=== PATIENT | male | born 1970 | race Caucasian/White ===

== ENCOUNTER 2021-03-30 13:18 | Inpatient (IN) | payer OTHER ==
[2021-03-30] MEDS ORDERED: MAGNESIUM HYDROX 2400MG/30ML ORAL SUSPENSION 30 ML CUP PO PRN (15:21)
[2021-03-30] MEDS ORDERED: MAG HYDROX/AL HYDROX/SIMETH 30 ML UNIT-DOSE CUP PO PRN (15:21)
[2021-03-30] MEDS ORDERED: MENTHOL/PHENOL 1 EACH UD MM PRN (15:21)
[2021-03-30] MEDS ORDERED: BISMUTH SUBSALICYLATE 262 MG/15 ML BTL PO PRN (15:21)
[2021-03-30] MEDS ORDERED: LORazepam 1 MG TABLET PO PRN (15:21)
[2021-03-30] MEDS ORDERED: MAGNESIUM CITRATE 300 ML BOTTLE PO PRN (15:21)
[2021-03-30] MEDS ORDERED: ONDANSETRON *ODT* 4 MG TABLET SL PRN (15:21)
[2021-03-30] MEDS ORDERED: LORazepam 2 MG TABLET PO ONE (15:28)
[2021-03-30 15:39] VITALS: BMI 30.8
[2021-03-30] MEDS: hydrOXYzine PAMOATE 50 MG CAPSULE (FP) PO PRN (16:38)
[2021-03-30] MEDS ORDERED: LORazepam 2 MG TABLET PO SCH (17:00)
[2021-03-30] MEDS ORDERED: buPROPion HCL 100 MG TABLET PO SCH (18:00)
[2021-03-30] MEDS: traZODone HCL 50 MG TABLET (FP) PO SCH (21:03)
[2021-03-30] MEDS: THIAMINE HCL 100 MG TABLET (FP) PO SCH (21:03)
[2021-03-30] MEDS: OLANZapine 7.5 MG TABLET PO SCH (21:03)
[2021-03-30] MEDS: GABAPENTIN 300 MG CAPSULE PO SCH (21:04)
[2021-03-30] MEDS ORDERED: PATIENT'S OWN MEDICATION (NON-FORMULARY) (Melatonin [Melatonin] 3 MG Capsule) PO SCH (22:00)
[2021-03-30] MEDS ORDERED: MELATONIN 5 MG TABLETS PO SCH (22:00)
[2021-03-30] MEDS ORDERED: PATIENT'S OWN MEDICATION (NON-FORMULARY) (Gabapentin [Neurontin] 600 MG Tablet) PO SCH (22:00)
[2021-03-31] MEDS ORDERED: buPROPion HCL 100 MG TABLET PO SCH (09:06)
[2021-03-31] MEDS: THIAMINE HCL 100 MG TABLET (FP) PO SCH ×2 (10:24→21:43)
[2021-03-31] MEDS: GABAPENTIN 300 MG CAPSULE PO SCH ×2 (10:24→21:43)
[2021-03-31] MEDS: PRENATAL VITAMINS W/ FOLIC ACID TABLET (FP) PO SCH (10:24)
[2021-03-31] MEDS: busPIRone HCL 10 MG TABLET (FP) PO SCH (10:24)
[2021-03-31] MEDS: FOLIC ACID 1 MG TABLET (FP) PO SCH (10:24)
[2021-03-31] MEDS: OLANZapine 7.5 MG TABLET PO SCH ×2 (10:25→21:44)
[2021-03-31] MEDS: hydrOXYzine PAMOATE 50 MG CAPSULE (FP) PO PRN ×2 (10:43→15:47)
[2021-03-31] MEDS: ACETAMINOPHEN 325 MG TABLET (FP) PO PRN ×2 (10:49→16:53)
[2021-03-31] MEDS: buPROPion HCL 75 MG TABLET PO SCH ×2 (10:52→17:14)
[2021-03-31 10:54] LABS: HEMATOCRIT 41.3 % (35.4-49); HEMOGLOBIN 13.7 GM/dL (11.7-16.9); MCH 28.9 pg (25.7-33.7); MCHC 33.1 g/dl (32.0-35.9); MEAN CELL VOLUME 87.3 fl (80-96); MEAN PLT VOLUME 8.7 fl (7.5-11.1); PLATELET COUNT 284 10^3/uL (134-434); RBC 4.73 M/mm3 (4.00-5.60); RDW 14.3 % (11.9-15.9)
[2021-03-31] MEDS: IBUPROFEN 400 MG TABLET (FP) PO PRN ×2 (11:45→18:46)
[2021-03-31 12:56] LABS: CALCIUM 8.8 mg/dL (8.5-10.1)
[2021-03-31 12:57] LABS: BLOOD UREA NITROGEN 8.9 mg/dL (7-18)
[2021-03-31 13:00] LABS: CREATININE 1.3 mg/dL (0.55-1.3)
[2021-03-31 13:01] LABS: BILIRUBIN,TOTAL 0.4 mg/dL (0.2-1); TOT PROT 7.9 g/dl (6.4-8.2)
[2021-03-31] MEDS: NICOTINE POLACRILEX 2 MG GUM BUC PRN ×2 (15:48→18:08)
[2021-03-31] MEDS: METHOCARBAMOL 500 MG TABLET PO PRN (18:46)
[2021-03-31] MEDS: traZODone HCL 50 MG TABLET (FP) PO SCH (21:44)
[2021-03-31] MEDS: MELATONIN 1 MG TABLET PO SCH (21:46)
[2021-04-01] MEDS ORDERED: LORazepam 1 MG TABLET PO SCH (05:00)
[2021-04-01] MEDS: buPROPion HCL 75 MG TABLET PO SCH ×2 (09:44→17:02)
[2021-04-01] MEDS: THIAMINE HCL 100 MG TABLET (FP) PO SCH ×2 (09:44→21:15)
[2021-04-01] MEDS: FOLIC ACID 1 MG TABLET (FP) PO SCH (09:44)
[2021-04-01] MEDS: busPIRone HCL 10 MG TABLET (FP) PO SCH (09:44)
[2021-04-01] MEDS: OLANZapine 7.5 MG TABLET PO SCH ×2 (09:44→21:15)
[2021-04-01] MEDS: GABAPENTIN 300 MG CAPSULE PO SCH ×2 (09:44→21:16)
[2021-04-01] MEDS: PRENATAL VITAMINS W/ FOLIC ACID TABLET (FP) PO SCH (09:44)
[2021-04-01] MEDS ORDERED: NICOTINE 10 MG CARTRIDGE (INHALER) IH SCH (10:00)
[2021-04-01] MEDS: hydrOXYzine PAMOATE 50 MG CAPSULE (FP) PO PRN ×2 (10:39→18:47)
[2021-04-01] MEDS: IBUPROFEN 400 MG TABLET (FP) PO PRN ×2 (10:56→17:48)
[2021-04-01] MEDS: METHOCARBAMOL 500 MG TABLET PO PRN ×2 (13:30→21:16)
[2021-04-01] MEDS: traZODone HCL 50 MG TABLET (FP) PO SCH (21:15)
[2021-04-01] MEDS: MELATONIN 1 MG TABLET PO SCH (21:16)
[2021-04-02] MEDS ORDERED: LORazepam 0.5 MG TABLET PO PRN
[2021-04-02] MEDS ORDERED: LORazepam 0.5 MG TABLET PO SCH (05:00)
[2021-04-02] MEDS ORDERED: PT OWN MED DRAWER 7, Y5N ONE ×2 (08:51→18:27)
[2021-04-02] MEDS: PRENATAL VITAMINS W/ FOLIC ACID TABLET (FP) PO SCH (09:54)
[2021-04-02] MEDS: GABAPENTIN 300 MG CAPSULE PO SCH ×2 (09:54→21:33)
[2021-04-02] MEDS: busPIRone HCL 10 MG TABLET (FP) PO SCH (09:55)
[2021-04-02] MEDS: THIAMINE HCL 100 MG TABLET (FP) PO SCH ×2 (09:55→21:32)
[2021-04-02] MEDS: buPROPion HCL 75 MG TABLET PO SCH ×2 (09:55→17:05)
[2021-04-02] MEDS: OLANZapine 7.5 MG TABLET PO SCH ×2 (09:55→21:33)
[2021-04-02] MEDS: FOLIC ACID 1 MG TABLET (FP) PO SCH (09:55)
[2021-04-02] MEDS: NICOTINE 10 MG CARTRIDGE (INHALER) IH PRN ×3 (09:56→21:33)
[2021-04-02] MEDS: IBUPROFEN 400 MG TABLET (FP) PO PRN ×2 (10:41→18:20)
[2021-04-02] MEDS: hydrOXYzine PAMOATE 50 MG CAPSULE (FP) PO PRN ×2 (10:41→17:48)
[2021-04-02] MEDS: METHOCARBAMOL 500 MG TABLET PO PRN ×2 (11:11→19:50)
[2021-04-02] MEDS: ACETAMINOPHEN 325 MG TABLET (FP) PO PRN (15:08)
[2021-04-02] MEDS: traZODone HCL 50 MG TABLET (FP) PO SCH (21:32)
[2021-04-02] MEDS: MELATONIN 1 MG TABLET PO SCH (21:33)
[2021-04-03] MEDS ORDERED: LORazepam 0.5 MG TABLET PO ONE (05:00)
[2021-04-03] MEDS: buPROPion HCL 75 MG TABLET PO SCH ×2 (09:44→17:10)
[2021-04-03] MEDS: busPIRone HCL 10 MG TABLET (FP) PO SCH (09:44)
[2021-04-03] MEDS: FOLIC ACID 1 MG TABLET (FP) PO SCH (09:44)
[2021-04-03] MEDS: THIAMINE HCL 100 MG TABLET (FP) PO SCH ×2 (09:44→21:06)
[2021-04-03] MEDS: OLANZapine 7.5 MG TABLET PO SCH ×2 (09:44→21:06)
[2021-04-03] MEDS: PRENATAL VITAMINS W/ FOLIC ACID TABLET (FP) PO SCH (09:44)
[2021-04-03] MEDS: GABAPENTIN 300 MG CAPSULE PO SCH ×2 (09:45→21:06)
[2021-04-03] MEDS: NICOTINE 10 MG CARTRIDGE (INHALER) IH PRN ×3 (09:47→21:09)
[2021-04-03] MEDS: ACETAMINOPHEN 325 MG TABLET (FP) PO PRN ×2 (10:26→17:48)
[2021-04-03] MEDS: hydrOXYzine PAMOATE 50 MG CAPSULE (FP) PO PRN ×2 (10:26→18:32)
[2021-04-03] MEDS: METHOCARBAMOL 500 MG TABLET PO PRN ×2 (10:32→19:14)
[2021-04-03] MEDS: IBUPROFEN 400 MG TABLET (FP) PO PRN (12:02)
[2021-04-03 14:08] LABS: SARS-CoV-2 NAA Not Detected (Not Detected)
[2021-04-03] MEDS: traZODone HCL 50 MG TABLET (FP) PO SCH (21:08)
[2021-04-03] MEDS: MELATONIN 1 MG TABLET PO SCH (21:08)
[2021-04-04] MEDS ORDERED: PT OWN MED DRAWER 7, Y5N ONE (08:27)
[2021-04-04] MEDS: PRENATAL VITAMINS W/ FOLIC ACID TABLET (FP) PO SCH (09:36)
[2021-04-04] MEDS: FOLIC ACID 1 MG TABLET (FP) PO SCH (09:37)
[2021-04-04] MEDS: busPIRone HCL 10 MG TABLET (FP) PO SCH (09:37)
[2021-04-04] MEDS: GABAPENTIN 300 MG CAPSULE PO SCH ×2 (09:37→21:24)
[2021-04-04] MEDS: THIAMINE HCL 100 MG TABLET (FP) PO SCH ×2 (09:37→21:24)
[2021-04-04] MEDS: IBUPROFEN 400 MG TABLET (FP) PO PRN ×2 (09:37→18:33)
[2021-04-04] MEDS: OLANZapine 7.5 MG TABLET PO SCH ×2 (09:37→21:24)
[2021-04-04] MEDS: buPROPion HCL 75 MG TABLET PO SCH ×2 (09:37→17:10)
[2021-04-04] MEDS: NICOTINE 10 MG CARTRIDGE (INHALER) IH PRN ×3 (09:46→21:25)
[2021-04-04] MEDS: hydrOXYzine PAMOATE 50 MG CAPSULE (FP) PO PRN ×2 (11:00→19:39)
[2021-04-04] MEDS: ACETAMINOPHEN 325 MG TABLET (FP) PO PRN (12:06)
[2021-04-04] MEDS: METHOCARBAMOL 500 MG TABLET PO PRN (15:26)
[2021-04-04] MEDS: traZODone HCL 50 MG TABLET (FP) PO SCH (21:24)
[2021-04-04] MEDS: MELATONIN 1 MG TABLET PO SCH (21:25)
[2021-04-05] MEDS ORDERED: PT OWN MED DRAWER 7, Y5N ONE ×5 (08:43→21:48)
[2021-04-05] MEDS: METHOCARBAMOL 500 MG TABLET PO PRN (09:31)
[2021-04-05] MEDS: FOLIC ACID 1 MG TABLET (FP) PO SCH (09:31)
[2021-04-05] MEDS: PRENATAL VITAMINS W/ FOLIC ACID TABLET (FP) PO SCH (09:31)
[2021-04-05] MEDS: hydrOXYzine PAMOATE 50 MG CAPSULE (FP) PO PRN ×2 (09:31→18:43)
[2021-04-05] MEDS: OLANZapine 7.5 MG TABLET PO SCH ×2 (09:31→21:07)
[2021-04-05] MEDS: buPROPion HCL 75 MG TABLET PO SCH ×2 (09:31→17:12)
[2021-04-05] MEDS: THIAMINE HCL 100 MG TABLET (FP) PO SCH ×2 (09:32→21:07)
[2021-04-05] MEDS: GABAPENTIN 300 MG CAPSULE PO SCH ×2 (09:32→21:07)
[2021-04-05] MEDS: IBUPROFEN 400 MG TABLET (FP) PO PRN ×2 (09:34→18:43)
[2021-04-05] MEDS: NICOTINE 10 MG CARTRIDGE (INHALER) IH PRN ×3 (10:09→21:09)
[2021-04-05] MEDS: busPIRone HCL 10 MG TABLET (FP) PO SCH (12:27)
[2021-04-05] MEDS: traZODone HCL 50 MG TABLET (FP) PO SCH (21:07)
[2021-04-05] MEDS: MELATONIN 1 MG TABLET PO SCH (22:50)
[2021-04-06 06:48] VITALS: TEMP 96.7
[2021-04-06] MEDS ORDERED: PT OWN MED DRAWER 7, Y5N ONE ×3 (08:29→19:22)
[2021-04-06] MEDS: PRENATAL VITAMINS W/ FOLIC ACID TABLET (FP) PO SCH (09:21)
[2021-04-06] MEDS: GABAPENTIN 300 MG CAPSULE PO SCH ×2 (09:22→21:43)
[2021-04-06] MEDS: busPIRone HCL 10 MG TABLET (FP) PO SCH (09:22)
[2021-04-06] MEDS: THIAMINE HCL 100 MG TABLET (FP) PO SCH ×2 (09:22→21:44)
[2021-04-06] MEDS: FOLIC ACID 1 MG TABLET (FP) PO SCH (09:22)
[2021-04-06] MEDS: IBUPROFEN 400 MG TABLET (FP) PO PRN ×2 (09:23→15:54)
[2021-04-06] MEDS: OLANZapine 7.5 MG TABLET PO SCH ×2 (09:24→21:44)
[2021-04-06] MEDS: NICOTINE 10 MG CARTRIDGE (INHALER) IH PRN ×3 (09:26→19:25)
[2021-04-06] MEDS: buPROPion HCL 75 MG TABLET PO SCH ×2 (09:27→17:01)
[2021-04-06] MEDS: hydrOXYzine PAMOATE 50 MG CAPSULE (FP) PO PRN ×2 (10:19→17:28)
[2021-04-06] MEDS: ACETAMINOPHEN 325 MG TABLET (FP) PO PRN ×2 (12:05→18:13)
[2021-04-06] MEDS: traZODone HCL 50 MG TABLET (FP) PO SCH (21:43)
[2021-04-07] MEDS: MELATONIN 1 MG TABLET PO SCH ×2 (00:04→21:04)
[2021-04-07] MEDS ORDERED: PT OWN MED DRAWER 7, Y5N ONE (08:51)
[2021-04-07] MEDS: PRENATAL VITAMINS W/ FOLIC ACID TABLET (FP) PO SCH (09:30)
[2021-04-07] MEDS: FOLIC ACID 1 MG TABLET (FP) PO SCH (09:30)
[2021-04-07] MEDS: GABAPENTIN 300 MG CAPSULE PO SCH ×2 (09:30→21:04)
[2021-04-07] MEDS: THIAMINE HCL 100 MG TABLET (FP) PO SCH ×2 (09:30→21:04)
[2021-04-07] MEDS: busPIRone HCL 10 MG TABLET (FP) PO SCH (09:31)
[2021-04-07] MEDS: buPROPion HCL 75 MG TABLET PO SCH ×2 (09:31→17:03)
[2021-04-07] MEDS: ACETAMINOPHEN 325 MG TABLET (FP) PO PRN ×2 (09:31→17:30)
[2021-04-07] MEDS: NICOTINE 10 MG CARTRIDGE (INHALER) IH PRN ×3 (09:42→21:04)
[2021-04-07] MEDS: hydrOXYzine PAMOATE 50 MG CAPSULE (FP) PO PRN ×2 (10:04→18:34)
[2021-04-07] MEDS: OLANZapine 7.5 MG TABLET PO SCH ×2 (10:56→21:04)
[2021-04-07] MEDS: traZODone HCL 50 MG TABLET (FP) PO SCH (21:04)
[2021-04-08] MEDS: hydrOXYzine PAMOATE 50 MG CAPSULE (FP) PO PRN ×2 (09:24→17:56)
[2021-04-08] MEDS: busPIRone HCL 10 MG TABLET (FP) PO SCH (09:24)
[2021-04-08] MEDS: FOLIC ACID 1 MG TABLET (FP) PO SCH (09:24)
[2021-04-08] MEDS: GABAPENTIN 300 MG CAPSULE PO SCH ×2 (09:24→21:25)
[2021-04-08] MEDS: PRENATAL VITAMINS W/ FOLIC ACID TABLET (FP) PO SCH (09:24)
[2021-04-08] MEDS: OLANZapine 7.5 MG TABLET PO SCH ×2 (09:24→21:24)
[2021-04-08] MEDS: THIAMINE HCL 100 MG TABLET (FP) PO SCH ×2 (09:24→21:24)
[2021-04-08] MEDS: buPROPion HCL 75 MG TABLET PO SCH ×2 (09:24→17:02)
[2021-04-08] MEDS: ACETAMINOPHEN 325 MG TABLET (FP) PO PRN ×2 (09:25→17:56)
[2021-04-08] MEDS: NICOTINE 10 MG CARTRIDGE (INHALER) IH PRN ×3 (09:37→21:25)
[2021-04-08] MEDS: IBUPROFEN 400 MG TABLET (FP) PO PRN (13:27)
[2021-04-08] MEDS: MELATONIN 1 MG TABLET PO SCH (21:24)
[2021-04-08] MEDS: traZODone HCL 50 MG TABLET (FP) PO SCH (21:25)
[2021-04-09] MEDS: PRENATAL VITAMINS W/ FOLIC ACID TABLET (FP) PO SCH (09:23)
[2021-04-09] MEDS: THIAMINE HCL 100 MG TABLET (FP) PO SCH ×2 (09:23→21:30)
[2021-04-09] MEDS: GABAPENTIN 300 MG CAPSULE PO SCH ×2 (09:23→21:28)
[2021-04-09] MEDS: FOLIC ACID 1 MG TABLET (FP) PO SCH (09:23)
[2021-04-09] MEDS: OLANZapine 7.5 MG TABLET PO SCH ×2 (09:24→21:28)
[2021-04-09] MEDS: ACETAMINOPHEN 325 MG TABLET (FP) PO PRN ×2 (09:24→18:28)
[2021-04-09] MEDS: buPROPion HCL 75 MG TABLET PO SCH ×2 (09:24→17:11)
[2021-04-09] MEDS: busPIRone HCL 10 MG TABLET (FP) PO SCH (09:24)
[2021-04-09] MEDS: NICOTINE 10 MG CARTRIDGE (INHALER) IH PRN ×3 (09:27→18:29)
[2021-04-09] MEDS: hydrOXYzine PAMOATE 50 MG CAPSULE (FP) PO PRN ×2 (10:28→17:11)
[2021-04-09] MEDS: IBUPROFEN 400 MG TABLET (FP) PO PRN (15:28)
[2021-04-09] MEDS: traZODone HCL 50 MG TABLET (FP) PO SCH (21:28)
[2021-04-09] MEDS ORDERED: PT OWN MED DRAWER 7, Y5N ONE (21:29)
[2021-04-09] MEDS: MELATONIN 1 MG TABLET PO SCH (23:48)
[2021-04-10] MEDS: PRENATAL VITAMINS W/ FOLIC ACID TABLET (FP) PO SCH (09:15)
[2021-04-10] MEDS: FOLIC ACID 1 MG TABLET (FP) PO SCH (09:15)
[2021-04-10] MEDS: hydrOXYzine PAMOATE 50 MG CAPSULE (FP) PO PRN ×2 (09:16→18:05)
[2021-04-10] MEDS: THIAMINE HCL 100 MG TABLET (FP) PO SCH ×2 (09:16→21:11)
[2021-04-10] MEDS: OLANZapine 7.5 MG TABLET PO SCH ×2 (09:16→21:10)
[2021-04-10] MEDS: GABAPENTIN 300 MG CAPSULE PO SCH ×2 (09:16→21:11)
[2021-04-10] MEDS: buPROPion HCL 75 MG TABLET PO SCH ×2 (09:16→17:02)
[2021-04-10] MEDS: busPIRone HCL 10 MG TABLET (FP) PO SCH (09:17)
[2021-04-10] MEDS: ACETAMINOPHEN 325 MG TABLET (FP) PO PRN ×2 (09:18→18:05)
[2021-04-10] MEDS: NICOTINE 10 MG CARTRIDGE (INHALER) IH PRN ×3 (09:19→22:12)
[2021-04-10] MEDS: MELATONIN 1 MG TABLET PO SCH (21:10)
[2021-04-10] MEDS: traZODone HCL 50 MG TABLET (FP) PO SCH (21:11)
[2021-04-11] MEDS: PRENATAL VITAMINS W/ FOLIC ACID TABLET (FP) PO SCH (10:23)
[2021-04-11] MEDS: FOLIC ACID 1 MG TABLET (FP) PO SCH (10:24)
[2021-04-11] MEDS: OLANZapine 7.5 MG TABLET PO SCH ×2 (10:24→21:38)
[2021-04-11] MEDS: busPIRone HCL 10 MG TABLET (FP) PO SCH (10:24)
[2021-04-11] MEDS: THIAMINE HCL 100 MG TABLET (FP) PO SCH ×2 (10:24→21:38)
[2021-04-11] MEDS: GABAPENTIN 300 MG CAPSULE PO SCH ×2 (10:24→21:39)
[2021-04-11] MEDS: NICOTINE 10 MG CARTRIDGE (INHALER) IH PRN ×3 (10:25→22:06)
[2021-04-11] MEDS: buPROPion HCL 75 MG TABLET PO SCH ×2 (10:25→17:12)
[2021-04-11] MEDS: hydrOXYzine PAMOATE 50 MG CAPSULE (FP) PO PRN ×2 (11:05→17:31)
[2021-04-11] MEDS: ACETAMINOPHEN 325 MG TABLET (FP) PO PRN ×2 (12:51→18:22)
[2021-04-11] MEDS ORDERED: PT OWN MED DRAWER 7, Y5N ONE (18:51)
[2021-04-11] MEDS: traZODone HCL 50 MG TABLET (FP) PO SCH (21:38)
[2021-04-11] MEDS: MELATONIN 1 MG TABLET PO SCH (21:39)
[2021-04-12 06:42] VITALS: BP 117/71; PULSE 78
[2021-04-12] MEDS: busPIRone HCL 10 MG TABLET (FP) PO SCH (09:21)
[2021-04-12] MEDS: PRENATAL VITAMINS W/ FOLIC ACID TABLET (FP) PO SCH (09:21)
[2021-04-12] MEDS: THIAMINE HCL 100 MG TABLET (FP) PO SCH ×2 (09:21→21:05)
[2021-04-12] MEDS: GABAPENTIN 300 MG CAPSULE PO SCH ×2 (09:22→21:05)
[2021-04-12] MEDS: buPROPion HCL 75 MG TABLET PO SCH ×2 (09:22→17:06)
[2021-04-12] MEDS: OLANZapine 7.5 MG TABLET PO SCH ×2 (09:22→21:05)
[2021-04-12] MEDS: ACETAMINOPHEN 325 MG TABLET (FP) PO PRN ×2 (09:22→17:07)
[2021-04-12] MEDS: FOLIC ACID 1 MG TABLET (FP) PO SCH (09:22)
[2021-04-12] MEDS: hydrOXYzine PAMOATE 50 MG CAPSULE (FP) PO PRN ×2 (09:55→17:06)
[2021-04-12] MEDS: NICOTINE 10 MG CARTRIDGE (INHALER) IH PRN ×2 (09:55→16:37)
[2021-04-12] MEDS ORDERED: PT OWN MED DRAWER 7, Y5N ONE ×2 (19:05→21:06)
[2021-04-12] MEDS: traZODone HCL 50 MG TABLET (FP) PO SCH (21:05)
[2021-04-12] MEDS: MELATONIN 1 MG TABLET PO SCH (21:06)
[2021-04-13] MEDS: ACETAMINOPHEN 325 MG TABLET (FP) PO PRN ×2 (10:13→17:31)
[2021-04-13] MEDS: THIAMINE HCL 100 MG TABLET (FP) PO SCH ×2 (10:14→21:39)
[2021-04-13] MEDS: buPROPion HCL 75 MG TABLET PO SCH ×2 (10:14→17:03)
[2021-04-13] MEDS: GABAPENTIN 300 MG CAPSULE PO SCH ×2 (10:14→21:39)
[2021-04-13] MEDS: PRENATAL VITAMINS W/ FOLIC ACID TABLET (FP) PO SCH (10:14)
[2021-04-13] MEDS: hydrOXYzine PAMOATE 50 MG CAPSULE (FP) PO PRN (10:14)
[2021-04-13] MEDS: FOLIC ACID 1 MG TABLET (FP) PO SCH (10:14)
[2021-04-13] MEDS: OLANZapine 7.5 MG TABLET PO SCH ×2 (10:14→21:39)
[2021-04-13] MEDS: busPIRone HCL 10 MG TABLET (FP) PO SCH (10:14)
[2021-04-13] MEDS: NICOTINE 10 MG CARTRIDGE (INHALER) IH PRN ×2 (10:16→17:03)
[2021-04-13] MEDS: traZODone HCL 50 MG TABLET (FP) PO SCH (21:39)
[2021-04-13] MEDS: MELATONIN 1 MG TABLET PO SCH (21:40)
[2021-04-13] MEDS ORDERED: PT OWN MED DRAWER 7, Y5N ONE (21:40)
[2021-04-14] MEDS ORDERED: PT OWN MED DRAWER 7, Y5N ONE ×3 (08:37→18:48)
[2021-04-14] MEDS: GABAPENTIN 300 MG CAPSULE PO SCH ×2 (09:20→21:03)
[2021-04-14] MEDS: ACETAMINOPHEN 325 MG TABLET (FP) PO PRN ×2 (09:20→17:06)
[2021-04-14] MEDS: PRENATAL VITAMINS W/ FOLIC ACID TABLET (FP) PO SCH (09:21)
[2021-04-14] MEDS: busPIRone HCL 10 MG TABLET (FP) PO SCH (09:21)
[2021-04-14] MEDS: THIAMINE HCL 100 MG TABLET (FP) PO SCH ×2 (09:21→21:03)
[2021-04-14] MEDS: FOLIC ACID 1 MG TABLET (FP) PO SCH (09:21)
[2021-04-14] MEDS: buPROPion HCL 75 MG TABLET PO SCH ×2 (09:22→17:05)
[2021-04-14] MEDS: OLANZapine 7.5 MG TABLET PO SCH ×2 (09:22→21:03)
[2021-04-14] MEDS: NICOTINE 10 MG CARTRIDGE (INHALER) IH PRN ×2 (09:38→16:41)
[2021-04-14] MEDS: hydrOXYzine PAMOATE 50 MG CAPSULE (FP) PO PRN (10:45)
[2021-04-14] MEDS: traZODone HCL 50 MG TABLET (FP) PO SCH (21:03)
[2021-04-14] MEDS: MELATONIN 1 MG TABLET PO SCH (21:04)
[2021-04-15] MEDS: THIAMINE HCL 100 MG TABLET (FP) PO SCH (09:14)
[2021-04-15] MEDS: FOLIC ACID 1 MG TABLET (FP) PO SCH (09:14)
[2021-04-15] MEDS: PRENATAL VITAMINS W/ FOLIC ACID TABLET (FP) PO SCH (09:14)
[2021-04-15] MEDS: buPROPion HCL 75 MG TABLET PO SCH (09:14)
[2021-04-15] MEDS: GABAPENTIN 300 MG CAPSULE PO SCH (09:15)
[2021-04-15] MEDS: NICOTINE 10 MG CARTRIDGE (INHALER) IH PRN (09:16)
[2021-04-15] MEDS: OLANZapine 7.5 MG TABLET PO SCH (09:18)
[2021-04-15] MEDS: busPIRone HCL 10 MG TABLET (FP) PO SCH (09:21)
== END 2021-04-15 08:35 | disposition home or self-care (01) | DRG 772 ==
LOC: YASAS 13:18 → Y3W 15:19
PROVIDERS: ADMIT Allergy & Immunology; ATTEND Allergy & Immunology
PROC: HZ42ZZZ Group Counseling for Substance Abuse Treatment, Cognitive-Behavioral (ICD-10-PCS; principal; 2021-03-30)
DX: F10.20 Alcohol dependence, uncomplicated (principal); F11.20 Opioid dependence, uncomplicated; F12.20 Cannabis dependence, uncomplicated; F17.210 Nicotine dependence, cigarettes, uncomplicated; F19.24 Other psychoactive substance dependence with psychoactive substance-induced mood disorder; F39 Unspecified mood [affective] disorder; E87.6 Hypokalemia; Z86.59 Personal history of other mental and behavioral disorders; Z98.890 Other specified postprocedural states; Z91.013 Allergy to seafood; Z59.0 Homelessness
CPT/HCPCS: 36415; 80053; 82962; 85027; 86780; C9803; U0003; U0005

== ENCOUNTER 2022-09-13 17:53 | Inpatient (IN) | payer OTHER ==
[2022-09-13 20:08] VITALS: BMI 25.1
[2022-09-13] MEDS ORDERED: MAGNESIUM HYDROX 2400MG/30ML ORAL SUSPENSION 30 ML CUP PO PRN (20:25)
[2022-09-13] MEDS ORDERED: NICOTINE POLACRILEX 2 MG GUM BC PRN (20:25)
[2022-09-13] MEDS ORDERED: BENZOCAINE/MENTHOL (CHLORASEPTIC ) LOZENGE MM PRN (20:25)
[2022-09-13] MEDS ORDERED: MAG HYDROX/AL HYDROX/SIMETH 30 ML UNIT-DOSE CUP PO PRN (20:25)
[2022-09-13] MEDS ORDERED: ACETAMINOPHEN 325 MG TABLET (FP) PO PRN (20:25)
[2022-09-13] MEDS ORDERED: POLYETHYLENE GLYCOL (HEALTHYLAX) 3350 17 GM PACKET PO PRN (20:25)
[2022-09-13] MEDS ORDERED: LOPERAMIDE HCL 2 MG CAPSULE PO PRN (20:25)
[2022-09-13] MEDS ORDERED: guaiFENesin 200 MG/10 ML 10 ML UNIT-DOSE CUPS PO PRN (20:25)
[2022-09-13] MEDS ORDERED: IBUPROFEN 400 MG TABLET (FP) PO PRN (20:25)
[2022-09-13] MEDS ORDERED: diazePAM 5 MG TABLET PO PRN (21:02)
[2022-09-14] MEDS: THIAMINE HCL 100 MG TABLET (FP) PO SCH ×2 (00:58→22:11)
[2022-09-14] MEDS: MELATONIN 5 MG TABLETS PO SCH ×2 (00:58→22:10)
[2022-09-14] MEDS: PRENATAL VITAMINS W/ FOLIC ACID TABLET (FP) PO SCH (10:34)
[2022-09-14] MEDS: NICOTINE 14 MG/24 HOURS TOPICAL PATCH TD SCH (10:35)
[2022-09-14 12:33] LABS: HEMATOCRIT 40.9 % (35.4-49); HEMOGLOBIN 13.1 GM/dL (11.7-16.9); MCH 30.3 pg (25.7-33.7); MEAN CELL VOLUME 94.5 fl (80-96); MEAN PLT VOLUME 8.4 fl (7.5-11.1); PLATELET COUNT 356 10^3/uL (134-434); RBC 4.33 M/mm3 (4.00-5.60); RDW 14.3 % (11.9-15.9); WHITE BLOOD COUNT 5.2 K/mm3 (4.0-10.0)
[2022-09-14 12:47] LABS: CALCIUM 8.4 mg/dL (8.5-10.1)
[2022-09-14 12:49] LABS: ALBUMIN 3.1 g/dl (3.4-5.0)
[2022-09-14 12:52] LABS: CREATININE 0.8 mg/dL (0.55-1.3)
[2022-09-14 12:53] LABS: BILIRUBIN,TOTAL 0.5 mg/dL (0.2-1); TOT PROT 6.1 g/dl (6.4-8.2)
[2022-09-14] MEDS: GABAPENTIN 300 MG CAPSULE PO SCH ×2 (13:02→22:11)
[2022-09-14] MEDS: busPIRone HCL 10 MG TABLET (FP) PO SCH ×2 (13:02→22:11)
[2022-09-14] MEDS: buPROPion HCL 75 MG TABLET PO SCH ×2 (13:50→18:10)
[2022-09-14 16:36] LABS: SYPHILIS W/ RPR CONF NON-REACTIVE (NONREACTIVE)
[2022-09-14] MEDS: QUEtiapine FUMARATE 400 MG TABLET PO SCH (22:11)
[2022-09-14] MEDS: hydrOXYzine PAMOATE 25 MG CAPSULE (FP) PO PRN (22:12)
[2022-09-15] MEDS: busPIRone HCL 10 MG TABLET (FP) PO SCH ×3 (08:09→21:41)
[2022-09-15] MEDS: GABAPENTIN 300 MG CAPSULE PO SCH ×3 (08:09→21:41)
[2022-09-15] MEDS: PRENATAL VITAMINS W/ FOLIC ACID TABLET (FP) PO SCH (10:33)
[2022-09-15] MEDS: NICOTINE 14 MG/24 HOURS TOPICAL PATCH TD SCH (10:33)
[2022-09-15] MEDS: hydrOXYzine PAMOATE 25 MG CAPSULE (FP) PO PRN ×2 (10:35→21:41)
[2022-09-15] MEDS: buPROPion HCL 75 MG TABLET PO SCH ×2 (11:39→17:35)
[2022-09-15] MEDS: MELATONIN 5 MG TABLETS PO SCH (21:41)
[2022-09-15] MEDS: THIAMINE HCL 100 MG TABLET (FP) PO SCH (21:41)
[2022-09-15] MEDS: QUEtiapine FUMARATE 400 MG TABLET PO SCH (21:41)
[2022-09-16] MEDS: GABAPENTIN 300 MG CAPSULE PO SCH ×3 (06:30→22:01)
[2022-09-16] MEDS: busPIRone HCL 10 MG TABLET (FP) PO SCH ×3 (06:30→22:00)
[2022-09-16] MEDS: buPROPion HCL 75 MG TABLET PO SCH ×2 (06:30→17:47)
[2022-09-16] MEDS: PRENATAL VITAMINS W/ FOLIC ACID TABLET (FP) PO SCH (10:14)
[2022-09-16] MEDS: NICOTINE 14 MG/24 HOURS TOPICAL PATCH TD SCH (10:15)
[2022-09-16] MEDS: QUEtiapine FUMARATE 400 MG TABLET PO SCH (22:01)
[2022-09-16] MEDS: THIAMINE HCL 100 MG TABLET (FP) PO SCH (22:01)
[2022-09-16] MEDS: MELATONIN 5 MG TABLETS PO SCH (22:01)
[2022-09-17] MEDS: buPROPion HCL 75 MG TABLET PO SCH ×2 (06:54→17:41)
[2022-09-17] MEDS: GABAPENTIN 300 MG CAPSULE PO SCH ×3 (06:54→21:40)
[2022-09-17] MEDS: busPIRone HCL 10 MG TABLET (FP) PO SCH ×3 (06:54→21:40)
[2022-09-17] MEDS: PRENATAL VITAMINS W/ FOLIC ACID TABLET (FP) PO SCH (09:57)
[2022-09-17] MEDS: NICOTINE 14 MG/24 HOURS TOPICAL PATCH TD SCH (09:57)
[2022-09-17] MEDS: MELATONIN 5 MG TABLETS PO SCH (21:40)
[2022-09-17] MEDS: THIAMINE HCL 100 MG TABLET (FP) PO SCH (21:40)
[2022-09-17] MEDS: QUEtiapine FUMARATE 400 MG TABLET PO SCH (21:40)
[2022-09-18] MEDS: buPROPion HCL 75 MG TABLET PO SCH ×2 (06:48→17:13)
[2022-09-18] MEDS: GABAPENTIN 300 MG CAPSULE PO SCH ×3 (06:48→21:46)
[2022-09-18] MEDS: busPIRone HCL 10 MG TABLET (FP) PO SCH ×3 (06:48→21:45)
[2022-09-18] MEDS: PRENATAL VITAMINS W/ FOLIC ACID TABLET (FP) PO SCH (09:52)
[2022-09-18] MEDS: NICOTINE 14 MG/24 HOURS TOPICAL PATCH TD SCH (09:53)
[2022-09-18] MEDS: NICOTINE 10 MG CARTRIDGE (INHALER) IH PRN (13:39)
[2022-09-18] MEDS: QUEtiapine FUMARATE 400 MG TABLET PO SCH (21:45)
[2022-09-18] MEDS: MELATONIN 5 MG TABLETS PO SCH (21:45)
[2022-09-18] MEDS: THIAMINE HCL 100 MG TABLET (FP) PO SCH (21:46)
[2022-09-19] MEDS: GABAPENTIN 300 MG CAPSULE PO SCH ×3 (06:47→21:04)
[2022-09-19] MEDS: busPIRone HCL 10 MG TABLET (FP) PO SCH ×3 (06:47→21:05)
[2022-09-19] MEDS: buPROPion HCL 75 MG TABLET PO SCH ×2 (06:47→17:18)
[2022-09-19] MEDS: PRENATAL VITAMINS W/ FOLIC ACID TABLET (FP) PO SCH (09:30)
[2022-09-19] MEDS: QUEtiapine FUMARATE 400 MG TABLET PO SCH (21:04)
[2022-09-19] MEDS: THIAMINE HCL 100 MG TABLET (FP) PO SCH (21:04)
[2022-09-19] MEDS: MELATONIN 5 MG TABLETS PO SCH (21:05)
[2022-09-20] MEDS: busPIRone HCL 10 MG TABLET (FP) PO SCH ×3 (07:02→21:40)
[2022-09-20] MEDS: GABAPENTIN 300 MG CAPSULE PO SCH ×3 (07:02→21:40)
[2022-09-20] MEDS: buPROPion HCL 75 MG TABLET PO SCH ×2 (07:02→17:14)
[2022-09-20] MEDS: PRENATAL VITAMINS W/ FOLIC ACID TABLET (FP) PO SCH (10:10)
[2022-09-20] MEDS: NICOTINE 10 MG CARTRIDGE (INHALER) IH PRN (13:22)
[2022-09-20] MEDS: THIAMINE HCL 100 MG TABLET (FP) PO SCH (21:40)
[2022-09-20] MEDS: QUEtiapine FUMARATE 400 MG TABLET PO SCH (21:40)
[2022-09-20] MEDS: MELATONIN 5 MG TABLETS PO SCH (21:40)
[2022-09-21] MEDS: busPIRone HCL 10 MG TABLET (FP) PO SCH ×3 (07:01→21:29)
[2022-09-21] MEDS: GABAPENTIN 300 MG CAPSULE PO SCH ×3 (07:01→21:29)
[2022-09-21] MEDS: buPROPion HCL 75 MG TABLET PO SCH ×2 (07:03→17:02)
[2022-09-21] MEDS: PRENATAL VITAMINS W/ FOLIC ACID TABLET (FP) PO SCH (10:10)
[2022-09-21] MEDS: MELATONIN 5 MG TABLETS PO SCH (21:28)
[2022-09-21] MEDS: THIAMINE HCL 100 MG TABLET (FP) PO SCH (21:29)
[2022-09-21] MEDS: QUEtiapine FUMARATE 400 MG TABLET PO SCH (21:29)
[2022-09-22] MEDS: GABAPENTIN 300 MG CAPSULE PO SCH ×3 (06:49→21:35)
[2022-09-22] MEDS: busPIRone HCL 10 MG TABLET (FP) PO SCH ×3 (06:49→21:35)
[2022-09-22] MEDS: buPROPion HCL 75 MG TABLET PO SCH ×2 (06:49→17:07)
[2022-09-22] MEDS: PRENATAL VITAMINS W/ FOLIC ACID TABLET (FP) PO SCH (09:42)
[2022-09-22] MEDS: THIAMINE HCL 100 MG TABLET (FP) PO SCH (21:35)
[2022-09-22] MEDS: QUEtiapine FUMARATE 400 MG TABLET PO SCH (21:35)
[2022-09-22] MEDS: MELATONIN 5 MG TABLETS PO SCH (21:35)
[2022-09-23] MEDS: buPROPion HCL 75 MG TABLET PO SCH ×2 (06:47→17:18)
[2022-09-23] MEDS: busPIRone HCL 10 MG TABLET (FP) PO SCH ×3 (06:47→21:27)
[2022-09-23] MEDS: GABAPENTIN 300 MG CAPSULE PO SCH ×3 (06:47→21:27)
[2022-09-23] MEDS: P-EPHED 60MG/TRIPROLIDI 2.5MG TABLET PO PRN (06:48)
[2022-09-23 06:53] VITALS: RESP 18
[2022-09-23] MEDS: PRENATAL VITAMINS W/ FOLIC ACID TABLET (FP) PO SCH (10:10)
[2022-09-23] MEDS: THIAMINE HCL 100 MG TABLET (FP) PO SCH (21:27)
[2022-09-23] MEDS: QUEtiapine FUMARATE 400 MG TABLET PO SCH (21:27)
[2022-09-23] MEDS: MELATONIN 5 MG TABLETS PO SCH (21:27)
[2022-09-24] MEDS: busPIRone HCL 10 MG TABLET (FP) PO SCH ×3 (06:38→21:36)
[2022-09-24] MEDS: buPROPion HCL 75 MG TABLET PO SCH ×2 (06:38→17:03)
[2022-09-24] MEDS: GABAPENTIN 300 MG CAPSULE PO SCH ×3 (06:38→21:36)
[2022-09-24] MEDS: PRENATAL VITAMINS W/ FOLIC ACID TABLET (FP) PO SCH (10:00)
[2022-09-24] MEDS: THIAMINE HCL 100 MG TABLET (FP) PO SCH (21:36)
[2022-09-24] MEDS: MELATONIN 5 MG TABLETS PO SCH (21:36)
[2022-09-24] MEDS: QUEtiapine FUMARATE 400 MG TABLET PO SCH (21:36)
[2022-09-25] MEDS: GABAPENTIN 300 MG CAPSULE PO SCH ×3 (06:44→21:25)
[2022-09-25] MEDS: buPROPion HCL 75 MG TABLET PO SCH ×2 (06:44→17:05)
[2022-09-25] MEDS: P-EPHED 60MG/TRIPROLIDI 2.5MG TABLET PO PRN ×2 (06:44→15:07)
[2022-09-25] MEDS: busPIRone HCL 10 MG TABLET (FP) PO SCH ×3 (06:44→21:25)
[2022-09-25] MEDS: PRENATAL VITAMINS W/ FOLIC ACID TABLET (FP) PO SCH (10:21)
[2022-09-25] MEDS: THIAMINE HCL 100 MG TABLET (FP) PO SCH (21:25)
[2022-09-25] MEDS: MELATONIN 5 MG TABLETS PO SCH (21:25)
[2022-09-25] MEDS: QUEtiapine FUMARATE 400 MG TABLET PO SCH (21:26)
[2022-09-26] MEDS: busPIRone HCL 10 MG TABLET (FP) PO SCH ×3 (06:31→21:10)
[2022-09-26] MEDS: P-EPHED 60MG/TRIPROLIDI 2.5MG TABLET PO PRN ×2 (06:31→21:09)
[2022-09-26] MEDS: GABAPENTIN 300 MG CAPSULE PO SCH ×3 (06:31→21:10)
[2022-09-26] MEDS: buPROPion HCL 75 MG TABLET PO SCH ×2 (06:31→19:57)
[2022-09-26] MEDS: PRENATAL VITAMINS W/ FOLIC ACID TABLET (FP) PO SCH (09:50)
[2022-09-26] MEDS: DOCUSATE SODIUM 100 MG CAPSULE (FP) PO SCH ×2 (13:32→21:09)
[2022-09-26] MEDS: MELATONIN 5 MG TABLETS PO SCH (21:09)
[2022-09-26] MEDS: THIAMINE HCL 100 MG TABLET (FP) PO SCH (21:10)
[2022-09-26] MEDS: QUEtiapine FUMARATE 400 MG TABLET PO SCH (22:24)
[2022-09-27] MEDS: buPROPion HCL 75 MG TABLET PO SCH ×2 (06:25→17:02)
[2022-09-27] MEDS: DOCUSATE SODIUM 100 MG CAPSULE (FP) PO SCH ×3 (06:26→21:22)
[2022-09-27] MEDS: busPIRone HCL 10 MG TABLET (FP) PO SCH ×3 (06:26→21:22)
[2022-09-27] MEDS: GABAPENTIN 300 MG CAPSULE PO SCH ×3 (06:27→21:22)
[2022-09-27] MEDS ORDERED: COLLOIDAL OATMEAL 1 BAR EACH TP PRN (09:36)
[2022-09-27] MEDS: PRENATAL VITAMINS W/ FOLIC ACID TABLET (FP) PO SCH (09:39)
[2022-09-27] MEDS: hydrOXYzine PAMOATE 25 MG CAPSULE (FP) PO PRN ×2 (09:40→21:22)
[2022-09-27] MEDS: MELATONIN 5 MG TABLETS PO SCH (21:22)
[2022-09-27] MEDS: QUEtiapine FUMARATE 400 MG TABLET PO SCH (21:22)
[2022-09-27] MEDS: THIAMINE HCL 100 MG TABLET (FP) PO SCH (21:22)
[2022-09-28] MEDS: buPROPion HCL 75 MG TABLET PO SCH (06:28)
[2022-09-28] MEDS: DOCUSATE SODIUM 100 MG CAPSULE (FP) PO SCH (06:28)
[2022-09-28] MEDS: busPIRone HCL 10 MG TABLET (FP) PO SCH (06:28)
[2022-09-28] MEDS: GABAPENTIN 300 MG CAPSULE PO SCH (06:28)
[2022-09-28 07:09] VITALS: BP 114/73; PULSE 84; TEMP 98.1
[2022-09-28] MEDS: PRENATAL VITAMINS W/ FOLIC ACID TABLET (FP) PO SCH (09:29)
== END 2022-09-28 13:20 | disposition home or self-care (01) | DRG 772 ==
LOC: YASAS 17:53 → Y5N 23:38
PROVIDERS: ADMIT Allergy & Immunology; ATTEND Allergy & Immunology
PROC: HZ42ZZZ Group Counseling for Substance Abuse Treatment, Cognitive-Behavioral (ICD-10-PCS; principal; 2022-09-13)
DX: F10.20 Alcohol dependence, uncomplicated (principal); F14.20 Cocaine dependence, uncomplicated; F12.20 Cannabis dependence, uncomplicated; F17.210 Nicotine dependence, cigarettes, uncomplicated; F31.9 Bipolar disorder, unspecified; F41.9 Anxiety disorder, unspecified; F43.10 Post-traumatic stress disorder, unspecified; K40.90 Unilateral inguinal hernia, without obstruction or gangrene, not specified as recurrent; Z59.01 Sheltered homelessness; Z56.0 Unemployment, unspecified
CPT/HCPCS: 36415; 80053; 85027; 86780; 86803; C9803-CS; U0003; U0005

== ENCOUNTER 2022-09-26 14:11 | Emergency (ER) | payer OTHER ==
[2022-09-26 14:25] VITALS: RESP 18; BMI 26.8
[2022-09-26] MEDS ORDERED: ACETAMINOPHEN 1000 MG/100 ML BAG IVPB ONE (15:23)
[2022-09-26] MEDS ORDERED: SODIUM CHLORIDE 0.9% 500 ML INFUS.BAG IV ONE (15:23)
[2022-09-26] MEDS ORDERED: MIDAZOLAM HCL 5 MG/1 ML Single Dose Vial IVPUSH ONE (15:33)
[2022-09-26] MEDS ORDERED: MIDAZOLAM HCL 5 MG/1 ML Single Dose Vial ONE (16:07)
[2022-09-26] MEDS ORDERED: ACETAMINOPHEN INJECTION 100 ML IVPB ONE (16:08)
[2022-09-26 16:47] LABS: BASO % 0.8 % (0-2.0); EOS % 6.1 % (0-4.5); HEMATOCRIT 40.1 % (35.4-49); HEMOGLOBIN 13.1 GM/dL (11.7-16.9); LYMPH % 28.9 % (8-40); MCH 29.9 pg (25.7-33.7); MCHC 32.8 g/dl (32.0-35.9); MEAN CELL VOLUME 91.2 fl (80-96); MEAN PLT VOLUME 8.4 fl (7.5-11.1); MONO % 7.5 % (3.8-10.2); NEUT % 56.7 % (42.8-82.8); PLATELET COUNT 321 10^3/uL (134-434); RBC 4.39 M/mm3 (4.00-5.60); RDW 14.2 % (11.9-15.9); WHITE BLOOD COUNT 7.4 K/mm3 (4.0-10.0)
[2022-09-26 16:51] LABS: INR 0.9 (0.83-1.09); PROTHROMBIN TIME (PATIENT) 10.4 SEC (9.7-13.0)
[2022-09-26 16:54] LABS: ACTIVATED PTT 30.5 SECONDS (25.2-36.5)
[2022-09-26 17:17] LABS: CALCIUM 8.7 mg/dL (8.5-10.1)
[2022-09-26 17:18] LABS: ALBUMIN 3.6 g/dl (3.4-5.0); BLOOD UREA NITROGEN 16.6 mg/dL (7-18)
[2022-09-26 17:21] LABS: CREATININE 0.8 mg/dL (0.55-1.3)
[2022-09-26 17:23] LABS: BILIRUBIN,TOTAL 0.2 mg/dL (0.2-1); TOT PROT 7.1 g/dl (6.4-8.2)
[2022-09-26] MEDS ORDERED: HYDROmorphone HCL CARPU-JECT 2 MG/1 ML DISP.SYRIN IVPUSH ONE (18:30)
[2022-09-26 18:35] VITALS: BP 120/63; PULSE 68; TEMP 98
== END 2022-09-26 19:25 | disposition home or self-care (01) ==
LOC: JER 14:11
PROC: 3E0333Z Introduction of Anti-inflammatory into Peripheral Vein, Percutaneous Approach (ICD-10-PCS; principal; 2022-09-26)
PROC: 3E033NZ Introduction of Analgesics, Hypnotics, Sedatives into Peripheral Vein, Percutaneous Approach (ICD-10-PCS; 2022-09-26)
DX: K40.90 Unilateral inguinal hernia, without obstruction or gangrene, not specified as recurrent (principal)
CPT/HCPCS: 36415; 80053; 83605; 85025; 85610; 85730; 86850; 86900; 86901; 99284-25; C9803-CS; U0003; U0005

== ENCOUNTER 2023-02-08 13:00 | Inpatient (IN) | payer OTHER ==
[2023-02-08 13:58] VITALS: BMI 25.1
[2023-02-08] MEDS ORDERED: ACETAMINOPHEN 325 MG TABLET (FP) PO PRN (16:10)
[2023-02-08] MEDS ORDERED: BENZONATATE 200 MG CAPSULE PO PRN (16:10)
[2023-02-08] MEDS ORDERED: POLYETHYLENE GLYCOL (HEALTHYLAX) 3350 17 GM PACKET PO PRN (16:10)
[2023-02-08] MEDS ORDERED: NALOXONE HCL (KLOXXADO) 8 MG SPRAY NS PRN (16:10)
[2023-02-08] MEDS ORDERED: LOPERAMIDE HCL 2 MG CAPSULE PO PRN (16:10)
[2023-02-08] MEDS ORDERED: DICYCLOMINE HCL 10 MG CAPSULE PO PRN (16:10)
[2023-02-08] MEDS ORDERED: MAGNESIUM HYDROX 2400MG/30ML ORAL SUSPENSION 30 ML CUP PO PRN (16:10)
[2023-02-08] MEDS ORDERED: BISMUTH SUBSALICYLATE 524 MG/30 ML PO PRN (16:10)
[2023-02-08] MEDS ORDERED: guaiFENesin 600 MG TABLET.ER (FP) PO PRN (16:10)
[2023-02-08] MEDS ORDERED: NICOTINE 10 MG CARTRIDGE (INHALER) IH PRN (16:10)
[2023-02-08] MEDS ORDERED: BENZOCAINE/MENTHOL (CHLORASEPTIC ) LOZENGE MM PRN (16:10)
[2023-02-08] MEDS ORDERED: IBUPROFEN 400 MG TABLET (FP) PO PRN (16:10)
[2023-02-08] MEDS ORDERED: MAG HYDROX/AL HYDROX/SIMETH 30 ML UNIT-DOSE CUP PO PRN (16:10)
[2023-02-08] MEDS ORDERED: NALOXONE HCL 0.4 MG/ML VIAL IM PRN (16:10)
[2023-02-08] MEDS ORDERED: IBUPROFEN 600 MG TABLET (FP) PO PRN (16:10)
[2023-02-08] MEDS ORDERED: methaDONE HCL 10 MG TABLET (FOR DETOX USE ONLY) PO ONE (17:00)
[2023-02-08] MEDS ORDERED: methaDONE HCL 10 MG TABLET (FOR DETOX USE ONLY) ONE (17:00)
[2023-02-08] MEDS: PRENATAL VITAMINS W/ FOLIC ACID TABLET (FP) PO SCH (17:07)
[2023-02-08] MEDS ORDERED: MELATONIN 5 MG TABLETS PO SCH (22:00)
[2023-02-08] MEDS: THIAMINE HCL 100 MG TABLET (FP) PO SCH (22:13)
[2023-02-08] MEDS: cloNIDine HCL 0.1 MG TABLET PO PRN (22:13)
[2023-02-09] MEDS: cloNIDine HCL 0.1 MG TABLET PO PRN ×2 (03:21→18:54)
[2023-02-09] MEDS ORDERED: traZODone HCL 100 MG TABLET (FP) PO PRN (08:54)
[2023-02-09] MEDS: buPROPion HCL 75 MG TABLET PO SCH ×2 (10:16→17:06)
[2023-02-09] MEDS: PRENATAL VITAMINS W/ FOLIC ACID TABLET (FP) PO SCH (10:16)
[2023-02-09] MEDS: QUEtiapine FUMARATE 100 MG TABLET (FP) PO SCH (10:16)
[2023-02-09 10:57] LABS: HEMATOCRIT 38.1 % (35.4-49); HEMOGLOBIN 12.3 GM/dL (11.7-16.9); MCH 29.1 pg (25.7-33.7); MCHC 32.2 g/dl (32.0-35.9); MEAN CELL VOLUME 90.4 fl (80-96); MEAN PLT VOLUME 9.2 fl (7.5-11.1); PLATELET COUNT 234 10^3/uL (134-434); RBC 4.21 M/mm3 (4.00-5.60); RDW 13.2 % (11.9-15.9); WHITE BLOOD COUNT 7.4 K/mm3 (4.0-10.0)
[2023-02-09 12:06] LABS: POTASSIUM 4.2 mmol/L (3.5-5.1)
[2023-02-09 12:09] LABS: BLOOD UREA NITROGEN 31.4 mg/dL (7-18); CALCIUM 8.5 mg/dL (8.5-10.1)
[2023-02-09 12:10] LABS: ALBUMIN 3.5 g/dl (3.4-5.0)
[2023-02-09 12:13] LABS: CREATININE 0.9 mg/dL (0.55-1.3)
[2023-02-09 12:14] LABS: TOT PROT 6.9 g/dl (6.4-8.2)
[2023-02-09] MEDS: busPIRone HCL 10 MG TABLET (FP) PO SCH ×2 (13:35→22:06)
[2023-02-09] MEDS: GABAPENTIN 300 MG CAPSULE PO SCH ×2 (13:35→22:06)
[2023-02-09] MEDS: THIAMINE HCL 100 MG TABLET (FP) PO SCH (22:06)
[2023-02-09] MEDS: QUEtiapine FUMARATE 400 MG TABLET PO SCH (22:06)
[2023-02-09] MEDS: CLOTRIMAZOLE 1% CREAM TP SCH (22:08)
[2023-02-10] MEDS: GABAPENTIN 300 MG CAPSULE PO SCH ×3 (05:45→22:05)
[2023-02-10] MEDS: busPIRone HCL 10 MG TABLET (FP) PO SCH ×3 (05:45→22:05)
[2023-02-10] MEDS ORDERED: methaDONE HCL 10 MG TABLET (FOR DETOX USE ONLY) PO ONE (10:00)
[2023-02-10] MEDS: CLOTRIMAZOLE 1% CREAM TP SCH ×2 (10:39→22:07)
[2023-02-10] MEDS: buPROPion HCL 75 MG TABLET PO SCH ×2 (10:40→17:14)
[2023-02-10] MEDS: PRENATAL VITAMINS W/ FOLIC ACID TABLET (FP) PO SCH (10:40)
[2023-02-10] MEDS: QUEtiapine FUMARATE 100 MG TABLET (FP) PO SCH (10:40)
[2023-02-10] MEDS: cloNIDine HCL 0.1 MG TABLET PO PRN (16:02)
[2023-02-10] MEDS: THIAMINE HCL 100 MG TABLET (FP) PO SCH (22:05)
[2023-02-10] MEDS: QUEtiapine FUMARATE 400 MG TABLET PO SCH (22:05)
[2023-02-11] MEDS: GABAPENTIN 300 MG CAPSULE PO SCH ×3 (05:25→22:08)
[2023-02-11] MEDS: busPIRone HCL 10 MG TABLET (FP) PO SCH ×3 (05:25→22:08)
[2023-02-11] MEDS: PRENATAL VITAMINS W/ FOLIC ACID TABLET (FP) PO SCH (10:12)
[2023-02-11] MEDS: QUEtiapine FUMARATE 100 MG TABLET (FP) PO SCH (10:12)
[2023-02-11] MEDS: buPROPion HCL 75 MG TABLET PO SCH ×2 (10:13→17:03)
[2023-02-11] MEDS: CLOTRIMAZOLE 1% CREAM TP SCH ×2 (11:00→22:08)
[2023-02-11] MEDS ORDERED: COLLOIDAL OATMEAL 1 BAR EACH TP PRN (18:15)
[2023-02-11] MEDS: THIAMINE HCL 100 MG TABLET (FP) PO SCH (22:08)
[2023-02-11] MEDS: QUEtiapine FUMARATE 400 MG TABLET PO SCH (22:08)
[2023-02-12] MEDS: GABAPENTIN 300 MG CAPSULE PO SCH ×3 (05:38→22:13)
[2023-02-12] MEDS: busPIRone HCL 10 MG TABLET (FP) PO SCH ×3 (05:38→22:13)
[2023-02-12] MEDS ORDERED: methaDONE HCL 10 MG TABLET (FOR DETOX USE ONLY) PO ONE (10:00)
[2023-02-12] MEDS: QUEtiapine FUMARATE 100 MG TABLET (FP) PO SCH (10:07)
[2023-02-12] MEDS: PRENATAL VITAMINS W/ FOLIC ACID TABLET (FP) PO SCH (10:07)
[2023-02-12] MEDS: buPROPion HCL 75 MG TABLET PO SCH ×2 (10:08→17:18)
[2023-02-12] MEDS: CLOTRIMAZOLE 1% CREAM TP SCH ×2 (10:10→22:14)
[2023-02-12] MEDS: QUEtiapine FUMARATE 400 MG TABLET PO SCH (22:13)
[2023-02-12] MEDS: THIAMINE HCL 100 MG TABLET (FP) PO SCH (22:13)
[2023-02-12] MEDS: FLUTICASONE PROP 0.05% 16 GM NASAL SPRAY NS SCH (22:15)
[2023-02-13] MEDS: GABAPENTIN 300 MG CAPSULE PO SCH (05:34)
[2023-02-13] MEDS: busPIRone HCL 10 MG TABLET (FP) PO SCH (05:35)
[2023-02-13 06:31] VITALS: RESP 18
[2023-02-13 09:28] VITALS: BP 113/66; PULSE 67; TEMP 97.7
[2023-02-13] MEDS: FLUTICASONE PROP 0.05% 16 GM NASAL SPRAY NS SCH (10:33)
[2023-02-13] MEDS: CLOTRIMAZOLE 1% CREAM TP SCH (10:34)
[2023-02-13] MEDS: PRENATAL VITAMINS W/ FOLIC ACID TABLET (FP) PO SCH (10:34)
[2023-02-13] MEDS: QUEtiapine FUMARATE 100 MG TABLET (FP) PO SCH (10:34)
[2023-02-13] MEDS: buPROPion HCL 75 MG TABLET PO SCH (10:34)
== END 2023-02-13 13:02 | disposition other institution (70) | DRG 773 ==
LOC: YASAS 13:00 → Y6N 17:11
PROVIDERS: ADMIT Allergy & Immunology; ATTEND Surgery
PROC: HZ2ZZZZ Detoxification Services for Substance Abuse Treatment (ICD-10-PCS; principal; 2023-02-08)
DX: F11.23 Opioid dependence with withdrawal (principal); F14.20 Cocaine dependence, uncomplicated; F12.20 Cannabis dependence, uncomplicated; F17.213 Nicotine dependence, cigarettes, with withdrawal; F31.9 Bipolar disorder, unspecified; B35.3 Tinea pedis; Z87.19 Personal history of other diseases of the digestive system; Z99.89 Dependence on other enabling machines and devices; Z56.0 Unemployment, unspecified
CPT/HCPCS: 36415; 80053; 85027; 85032; 86780; 87635; 93005; 93010

== ENCOUNTER 2023-02-13 13:13 | Inpatient (IN) | payer OTHER ==
[2023-02-13] MEDS ORDERED: POLYETHYLENE GLYCOL (HEALTHYLAX) 3350 17 GM PACKET PO PRN (14:16)
[2023-02-13] MEDS ORDERED: AMMONIUM LACTATE 12% LOTION 225 GM BOTTLE TP PRN (14:16)
[2023-02-13] MEDS ORDERED: guaiFENesin 600 MG TABLET.ER (FP) PO PRN (14:16)
[2023-02-13] MEDS ORDERED: hydrOXYzine PAMOATE 25 MG CAPSULE (FP) PO PRN (14:16)
[2023-02-13] MEDS ORDERED: BENZOCAINE/MENTHOL (CHLORASEPTIC ) LOZENGE MM PRN (14:16)
[2023-02-13] MEDS ORDERED: NICOTINE 10 MG CARTRIDGE (INHALER) IH PRN (14:16)
[2023-02-13] MEDS ORDERED: METHOCARBAMOL 500 MG TABLET PO PRN (14:16)
[2023-02-13] MEDS ORDERED: LOPERAMIDE HCL 2 MG CAPSULE PO PRN (14:16)
[2023-02-13] MEDS ORDERED: IBUPROFEN 400 MG TABLET (FP) PO PRN (14:16)
[2023-02-13] MEDS ORDERED: BENZONATATE 200 MG CAPSULE PO PRN (14:16)
[2023-02-13] MEDS ORDERED: MAGNESIUM HYDROX 2400MG/30ML ORAL SUSPENSION 30 ML CUP PO PRN (14:16)
[2023-02-13] MEDS ORDERED: COLLOIDAL OATMEAL 1 BAR EACH TP PRN (14:16)
[2023-02-13] MEDS ORDERED: MAG HYDROX/AL HYDROX/SIMETH 30 ML UNIT-DOSE CUP PO PRN (14:16)
[2023-02-13] MEDS ORDERED: NALOXONE HCL (KLOXXADO) 8 MG SPRAY NS PRN (14:16)
[2023-02-13] MEDS ORDERED: ACETAMINOPHEN 325 MG TABLET (FP) PO PRN (14:16)
[2023-02-13] MEDS ORDERED: NALOXONE HCL 0.4 MG/ML VIAL IVPUSH PRN (14:16)
[2023-02-13] MEDS: GABAPENTIN 300 MG CAPSULE PO SCH ×2 (15:04→21:26)
[2023-02-13] MEDS: busPIRone HCL 10 MG TABLET (FP) PO SCH ×2 (15:04→21:26)
[2023-02-13] MEDS: buPROPion HCL 75 MG TABLET PO SCH (18:38)
[2023-02-13] MEDS: FLUTICASONE PROP 0.05% 16 GM NASAL SPRAY NS SCH (21:25)
[2023-02-13] MEDS: THIAMINE HCL 100 MG TABLET (FP) PO SCH (21:26)
[2023-02-13] MEDS: QUEtiapine FUMARATE 400 MG TABLET PO SCH (21:26)
[2023-02-13] MEDS: TOLNAFTATE 1% CREAM 15 GM TUBE TP SCH (21:26)
[2023-02-13] MEDS: MELATONIN 5 MG TABLETS PO SCH (21:27)
[2023-02-13] MEDS ORDERED: buPROPion HCL 75 MG TABLET PO SCH (22:00)
[2023-02-14] MEDS: busPIRone HCL 10 MG TABLET (FP) PO SCH ×3 (06:15→21:51)
[2023-02-14] MEDS: GABAPENTIN 300 MG CAPSULE PO SCH ×3 (06:15→21:51)
[2023-02-14] MEDS: PRENATAL VITAMINS W/ FOLIC ACID TABLET (FP) PO SCH (09:59)
[2023-02-14] MEDS: QUEtiapine FUMARATE 100 MG TABLET (FP) PO SCH (09:59)
[2023-02-14] MEDS: buPROPion HCL 75 MG TABLET PO SCH ×2 (10:00→17:13)
[2023-02-14] MEDS: FLUTICASONE PROP 0.05% 16 GM NASAL SPRAY NS SCH ×2 (10:01→22:03)
[2023-02-14] MEDS: TOLNAFTATE 1% CREAM 15 GM TUBE TP SCH ×2 (10:03→21:51)
[2023-02-14] MEDS: IBUPROFEN 600 MG TABLET (FP) PO PRN (10:54)
[2023-02-14] MEDS: THIAMINE HCL 100 MG TABLET (FP) PO SCH (21:51)
[2023-02-14] MEDS: QUEtiapine FUMARATE 400 MG TABLET PO SCH (21:51)
[2023-02-14] MEDS: MELATONIN 5 MG TABLETS PO SCH (21:51)
[2023-02-15] MEDS: busPIRone HCL 10 MG TABLET (FP) PO SCH ×3 (06:30→21:32)
[2023-02-15] MEDS: GABAPENTIN 300 MG CAPSULE PO SCH ×3 (06:30→21:32)
[2023-02-15] MEDS: FLUTICASONE PROP 0.05% 16 GM NASAL SPRAY NS SCH ×2 (09:32→21:33)
[2023-02-15] MEDS: TOLNAFTATE 1% CREAM 15 GM TUBE TP SCH ×2 (09:33→21:33)
[2023-02-15] MEDS: QUEtiapine FUMARATE 100 MG TABLET (FP) PO SCH (09:33)
[2023-02-15] MEDS: PRENATAL VITAMINS W/ FOLIC ACID TABLET (FP) PO SCH (09:33)
[2023-02-15] MEDS: buPROPion HCL 75 MG TABLET PO SCH ×2 (09:33→17:12)
[2023-02-15] MEDS: MELATONIN 5 MG TABLETS PO SCH (21:32)
[2023-02-15] MEDS: QUEtiapine FUMARATE 400 MG TABLET PO SCH (21:32)
[2023-02-15] MEDS: THIAMINE HCL 100 MG TABLET (FP) PO SCH (21:32)
[2023-02-16] MEDS: GABAPENTIN 300 MG CAPSULE PO SCH ×3 (06:27→21:17)
[2023-02-16] MEDS: busPIRone HCL 10 MG TABLET (FP) PO SCH ×3 (06:27→21:17)
[2023-02-16] MEDS: FLUTICASONE PROP 0.05% 16 GM NASAL SPRAY NS SCH ×2 (09:55→21:17)
[2023-02-16] MEDS: buPROPion HCL 75 MG TABLET PO SCH ×2 (09:55→17:42)
[2023-02-16] MEDS: PRENATAL VITAMINS W/ FOLIC ACID TABLET (FP) PO SCH (09:55)
[2023-02-16] MEDS: TOLNAFTATE 1% CREAM 15 GM TUBE TP SCH ×2 (09:56→21:18)
[2023-02-16] MEDS: QUEtiapine FUMARATE 100 MG TABLET (FP) PO SCH (09:56)
[2023-02-16] MEDS: QUEtiapine FUMARATE 400 MG TABLET PO SCH (21:17)
[2023-02-16] MEDS: MELATONIN 5 MG TABLETS PO SCH (21:17)
[2023-02-16] MEDS: THIAMINE HCL 100 MG TABLET (FP) PO SCH (21:17)
[2023-02-17] MEDS: busPIRone HCL 10 MG TABLET (FP) PO SCH ×3 (06:10→21:10)
[2023-02-17] MEDS: GABAPENTIN 300 MG CAPSULE PO SCH ×3 (06:10→21:10)
[2023-02-17] MEDS: buPROPion HCL 75 MG TABLET PO SCH ×2 (09:26→17:08)
[2023-02-17] MEDS: PRENATAL VITAMINS W/ FOLIC ACID TABLET (FP) PO SCH (09:26)
[2023-02-17] MEDS: TOLNAFTATE 1% CREAM 15 GM TUBE TP SCH ×2 (09:26→21:11)
[2023-02-17] MEDS: FLUTICASONE PROP 0.05% 16 GM NASAL SPRAY NS SCH ×2 (09:26→21:11)
[2023-02-17] MEDS: QUEtiapine FUMARATE 100 MG TABLET (FP) PO SCH (09:26)
[2023-02-17] MEDS: MELATONIN 5 MG TABLETS PO SCH (21:10)
[2023-02-17] MEDS: QUEtiapine FUMARATE 400 MG TABLET PO SCH (21:10)
[2023-02-17] MEDS: THIAMINE HCL 100 MG TABLET (FP) PO SCH (21:10)
[2023-02-18] MEDS: GABAPENTIN 300 MG CAPSULE PO SCH ×3 (06:49→21:34)
[2023-02-18] MEDS: busPIRone HCL 10 MG TABLET (FP) PO SCH ×3 (06:49→21:34)
[2023-02-18] MEDS: buPROPion HCL 75 MG TABLET PO SCH ×2 (09:34→17:09)
[2023-02-18] MEDS: QUEtiapine FUMARATE 100 MG TABLET (FP) PO SCH (09:34)
[2023-02-18] MEDS: TOLNAFTATE 1% CREAM 15 GM TUBE TP SCH ×2 (09:34→21:34)
[2023-02-18] MEDS: PRENATAL VITAMINS W/ FOLIC ACID TABLET (FP) PO SCH (09:34)
[2023-02-18] MEDS: FLUTICASONE PROP 0.05% 16 GM NASAL SPRAY NS SCH ×2 (09:35→21:33)
[2023-02-18] MEDS: THIAMINE HCL 100 MG TABLET (FP) PO SCH (21:33)
[2023-02-18] MEDS: QUEtiapine FUMARATE 400 MG TABLET PO SCH (21:34)
[2023-02-18] MEDS: MELATONIN 5 MG TABLETS PO SCH (21:35)
[2023-02-19] MEDS: GABAPENTIN 300 MG CAPSULE PO SCH ×3 (06:05→21:46)
[2023-02-19] MEDS: busPIRone HCL 10 MG TABLET (FP) PO SCH ×3 (06:05→21:46)
[2023-02-19] MEDS: buPROPion HCL 75 MG TABLET PO SCH ×2 (09:30→17:03)
[2023-02-19] MEDS: QUEtiapine FUMARATE 100 MG TABLET (FP) PO SCH (09:30)
[2023-02-19] MEDS: FLUTICASONE PROP 0.05% 16 GM NASAL SPRAY NS SCH ×2 (09:31→21:46)
[2023-02-19] MEDS: TOLNAFTATE 1% CREAM 15 GM TUBE TP SCH ×2 (09:31→21:47)
[2023-02-19] MEDS: PRENATAL VITAMINS W/ FOLIC ACID TABLET (FP) PO SCH (09:31)
[2023-02-19] MEDS: MELATONIN 5 MG TABLETS PO SCH (21:46)
[2023-02-19] MEDS: THIAMINE HCL 100 MG TABLET (FP) PO SCH (21:46)
[2023-02-19] MEDS: QUEtiapine FUMARATE 400 MG TABLET PO SCH (21:46)
[2023-02-20] MEDS: busPIRone HCL 10 MG TABLET (FP) PO SCH ×3 (06:37→21:12)
[2023-02-20] MEDS: GABAPENTIN 300 MG CAPSULE PO SCH ×3 (06:37→21:12)
[2023-02-20] MEDS: buPROPion HCL 75 MG TABLET PO SCH ×2 (09:29→17:06)
[2023-02-20] MEDS: QUEtiapine FUMARATE 100 MG TABLET (FP) PO SCH (09:29)
[2023-02-20] MEDS: PRENATAL VITAMINS W/ FOLIC ACID TABLET (FP) PO SCH (09:29)
[2023-02-20] MEDS: FLUTICASONE PROP 0.05% 16 GM NASAL SPRAY NS SCH ×2 (09:30→21:13)
[2023-02-20] MEDS: TOLNAFTATE 1% CREAM 15 GM TUBE TP SCH ×2 (09:32→21:13)
[2023-02-20] MEDS: P-EPHED 60MG/TRIPROLIDI 2.5MG TABLET PO PRN (14:32)
[2023-02-20] MEDS: MELATONIN 5 MG TABLETS PO SCH (21:12)
[2023-02-20] MEDS: QUEtiapine FUMARATE 400 MG TABLET PO SCH (21:12)
[2023-02-20] MEDS: THIAMINE HCL 100 MG TABLET (FP) PO SCH (21:12)
[2023-02-21] MEDS: GABAPENTIN 300 MG CAPSULE PO SCH ×3 (06:19→21:05)
[2023-02-21] MEDS: busPIRone HCL 10 MG TABLET (FP) PO SCH ×3 (06:19→21:05)
[2023-02-21] MEDS: FLUTICASONE PROP 0.05% 16 GM NASAL SPRAY NS SCH ×2 (09:11→21:05)
[2023-02-21] MEDS: PRENATAL VITAMINS W/ FOLIC ACID TABLET (FP) PO SCH (09:12)
[2023-02-21] MEDS: QUEtiapine FUMARATE 100 MG TABLET (FP) PO SCH (09:12)
[2023-02-21] MEDS: buPROPion HCL 75 MG TABLET PO SCH ×2 (09:12→17:03)
[2023-02-21] MEDS: TOLNAFTATE 1% CREAM 15 GM TUBE TP SCH ×2 (09:12→21:06)
[2023-02-21] MEDS: QUEtiapine FUMARATE 400 MG TABLET PO SCH (21:05)
[2023-02-21] MEDS: THIAMINE HCL 100 MG TABLET (FP) PO SCH (21:05)
[2023-02-21] MEDS: MELATONIN 5 MG TABLETS PO SCH (21:05)
[2023-02-22] MEDS: busPIRone HCL 10 MG TABLET (FP) PO SCH ×3 (06:16→21:03)
[2023-02-22] MEDS: GABAPENTIN 300 MG CAPSULE PO SCH ×3 (06:17→21:03)
[2023-02-22] MEDS: TOLNAFTATE 1% CREAM 15 GM TUBE TP SCH ×2 (09:49→21:03)
[2023-02-22] MEDS: PRENATAL VITAMINS W/ FOLIC ACID TABLET (FP) PO SCH (09:49)
[2023-02-22] MEDS: QUEtiapine FUMARATE 100 MG TABLET (FP) PO SCH (09:49)
[2023-02-22] MEDS: buPROPion HCL 75 MG TABLET PO SCH ×2 (09:49→17:04)
[2023-02-22] MEDS: FLUTICASONE PROP 0.05% 16 GM NASAL SPRAY NS SCH ×2 (09:49→21:02)
[2023-02-22] MEDS: P-EPHED 60MG/TRIPROLIDI 2.5MG TABLET PO PRN (11:34)
[2023-02-22] MEDS: QUEtiapine FUMARATE 400 MG TABLET PO SCH (21:02)
[2023-02-22] MEDS: THIAMINE HCL 100 MG TABLET (FP) PO SCH (21:03)
[2023-02-22] MEDS: MELATONIN 5 MG TABLETS PO SCH (21:03)
[2023-02-23] MEDS: GABAPENTIN 300 MG CAPSULE PO SCH ×3 (06:25→21:26)
[2023-02-23] MEDS: busPIRone HCL 10 MG TABLET (FP) PO SCH ×3 (06:25→21:26)
[2023-02-23] MEDS: FLUTICASONE PROP 0.05% 16 GM NASAL SPRAY NS SCH ×2 (09:18→21:26)
[2023-02-23] MEDS: QUEtiapine FUMARATE 100 MG TABLET (FP) PO SCH (09:18)
[2023-02-23] MEDS: PRENATAL VITAMINS W/ FOLIC ACID TABLET (FP) PO SCH (09:18)
[2023-02-23] MEDS: buPROPion HCL 75 MG TABLET PO SCH ×2 (09:18→17:00)
[2023-02-23] MEDS: TOLNAFTATE 1% CREAM 15 GM TUBE TP SCH ×2 (09:19→21:27)
[2023-02-23] MEDS: IBUPROFEN 600 MG TABLET (FP) PO PRN (11:28)
[2023-02-23] MEDS: QUEtiapine FUMARATE 400 MG TABLET PO SCH (21:26)
[2023-02-23] MEDS: THIAMINE HCL 100 MG TABLET (FP) PO SCH (21:26)
[2023-02-23] MEDS: MELATONIN 5 MG TABLETS PO SCH (21:26)
[2023-02-24] MEDS: GABAPENTIN 300 MG CAPSULE PO SCH ×3 (06:35→21:05)
[2023-02-24] MEDS: busPIRone HCL 10 MG TABLET (FP) PO SCH ×3 (06:35→21:05)
[2023-02-24] MEDS: QUEtiapine FUMARATE 100 MG TABLET (FP) PO SCH (09:38)
[2023-02-24] MEDS: FLUTICASONE PROP 0.05% 16 GM NASAL SPRAY NS SCH ×2 (09:38→21:05)
[2023-02-24] MEDS: PRENATAL VITAMINS W/ FOLIC ACID TABLET (FP) PO SCH (09:38)
[2023-02-24] MEDS: buPROPion HCL 75 MG TABLET PO SCH ×2 (09:38→17:01)
[2023-02-24] MEDS: TOLNAFTATE 1% CREAM 15 GM TUBE TP SCH ×2 (09:38→21:06)
[2023-02-24] MEDS: THIAMINE HCL 100 MG TABLET (FP) PO SCH (21:05)
[2023-02-24] MEDS: QUEtiapine FUMARATE 400 MG TABLET PO SCH (21:06)
[2023-02-24] MEDS: MELATONIN 5 MG TABLETS PO SCH (21:06)
[2023-02-25] MEDS: GABAPENTIN 300 MG CAPSULE PO SCH ×3 (05:57→21:07)
[2023-02-25] MEDS: busPIRone HCL 10 MG TABLET (FP) PO SCH ×3 (05:57→21:07)
[2023-02-25 07:10] VITALS: RESP 18
[2023-02-25] MEDS: PRENATAL VITAMINS W/ FOLIC ACID TABLET (FP) PO SCH (09:14)
[2023-02-25] MEDS: TOLNAFTATE 1% CREAM 15 GM TUBE TP SCH ×2 (09:15→21:07)
[2023-02-25] MEDS: QUEtiapine FUMARATE 100 MG TABLET (FP) PO SCH (09:15)
[2023-02-25] MEDS: FLUTICASONE PROP 0.05% 16 GM NASAL SPRAY NS SCH ×2 (09:15→21:06)
[2023-02-25] MEDS: buPROPion HCL 75 MG TABLET PO SCH ×2 (09:15→17:20)
[2023-02-25] MEDS: MELATONIN 5 MG TABLETS PO SCH (21:07)
[2023-02-25] MEDS: THIAMINE HCL 100 MG TABLET (FP) PO SCH (21:07)
[2023-02-25] MEDS: QUEtiapine FUMARATE 400 MG TABLET PO SCH (21:07)
[2023-02-26] MEDS: GABAPENTIN 300 MG CAPSULE PO SCH ×3 (06:59→22:08)
[2023-02-26] MEDS: busPIRone HCL 10 MG TABLET (FP) PO SCH ×3 (06:59→21:22)
[2023-02-26] MEDS: QUEtiapine FUMARATE 100 MG TABLET (FP) PO SCH (09:13)
[2023-02-26] MEDS: TOLNAFTATE 1% CREAM 15 GM TUBE TP SCH ×2 (09:13→21:19)
[2023-02-26] MEDS: PRENATAL VITAMINS W/ FOLIC ACID TABLET (FP) PO SCH (09:13)
[2023-02-26] MEDS: buPROPion HCL 75 MG TABLET PO SCH ×2 (09:13→17:24)
[2023-02-26] MEDS: FLUTICASONE PROP 0.05% 16 GM NASAL SPRAY NS SCH ×2 (09:13→21:19)
[2023-02-26] MEDS: THIAMINE HCL 100 MG TABLET (FP) PO SCH (21:19)
[2023-02-26] MEDS: MELATONIN 5 MG TABLETS PO SCH (21:19)
[2023-02-26] MEDS: QUEtiapine FUMARATE 400 MG TABLET PO SCH (21:22)
[2023-02-27] MEDS: busPIRone HCL 10 MG TABLET (FP) PO SCH (06:25)
[2023-02-27] MEDS: GABAPENTIN 300 MG CAPSULE PO SCH (06:25)
[2023-02-27 08:47] VITALS: BP 112/70; PULSE 90; TEMP 97.7
[2023-02-27] MEDS: QUEtiapine FUMARATE 100 MG TABLET (FP) PO SCH (09:59)
[2023-02-27] MEDS: PRENATAL VITAMINS W/ FOLIC ACID TABLET (FP) PO SCH (09:59)
[2023-02-27] MEDS: TOLNAFTATE 1% CREAM 15 GM TUBE TP SCH (10:00)
[2023-02-27] MEDS: buPROPion HCL 75 MG TABLET PO SCH (10:00)
== END 2023-02-27 11:09 | disposition home or self-care (01) | DRG 772 ==
LOC: YASAS 13:13 → Y3W 13:14
PROVIDERS: ADMIT Allergy & Immunology; ATTEND Psychiatry & Neurology Pain Medicine
PROC: HZ42ZZZ Group Counseling for Substance Abuse Treatment, Cognitive-Behavioral (ICD-10-PCS; principal; 2023-02-13)
DX: F11.20 Opioid dependence, uncomplicated (principal); F10.20 Alcohol dependence, uncomplicated; F14.20 Cocaine dependence, uncomplicated; F12.20 Cannabis dependence, uncomplicated; F17.210 Nicotine dependence, cigarettes, uncomplicated; F31.9 Bipolar disorder, unspecified; R09.81 Nasal congestion; Z86.69 Personal history of other diseases of the nervous system and sense organs
CPT/HCPCS: 36415; 82140; 86803; 87635

== ENCOUNTER 2023-08-01 12:43 | Inpatient (IN) | payer OTHER ==
[2023-08-01 14:02] VITALS: BMI 22.2
[2023-08-01] MEDS ORDERED: NALOXONE HCL 0.4 MG/ML VIAL IM PRN (16:53)
[2023-08-01] MEDS ORDERED: BENZOCAINE/MENTHOL (CHLORASEPTIC ) LOZENGE MM PRN (16:53)
[2023-08-01] MEDS ORDERED: ACETAMINOPHEN 325 MG TABLET (FP) PO PRN (16:53)
[2023-08-01] MEDS ORDERED: BISMUTH SUBSALICYLATE 524 MG/30 ML PO PRN (16:53)
[2023-08-01] MEDS ORDERED: IBUPROFEN 400 MG TABLET (FP) PO PRN (16:53)
[2023-08-01] MEDS ORDERED: IBUPROFEN 600 MG TABLET (FP) PO PRN (16:53)
[2023-08-01] MEDS ORDERED: hydrOXYzine PAMOATE 25 MG CAPSULE (FP) PO PRN (16:53)
[2023-08-01] MEDS ORDERED: LOPERAMIDE HCL 2 MG CAPSULE PO PRN (16:53)
[2023-08-01] MEDS ORDERED: NICOTINE POLACRILEX 2 MG GUM BUC PRN (16:53)
[2023-08-01] MEDS ORDERED: ONDANSETRON *ODT* 4 MG TABLET SL PRN (16:53)
[2023-08-01] MEDS ORDERED: POLYETHYLENE GLYCOL (HEALTHYLAX) 3350 17 GM PACKET PO PRN (16:53)
[2023-08-01] MEDS ORDERED: NALOXONE HCL (KLOXXADO) 8 MG SPRAY NS PRN (16:53)
[2023-08-01] MEDS ORDERED: METHOCARBAMOL 500 MG TABLET PO PRN (16:53)
[2023-08-01] MEDS ORDERED: MAGNESIUM HYDROX 2400MG/30ML ORAL SUSPENSION 30 ML CUP PO PRN (16:53)
[2023-08-01] MEDS ORDERED: MAG HYDROX/AL HYDROX/SIMETH 30 ML UNIT-DOSE CUP PO PRN (16:53)
[2023-08-01] MEDS ORDERED: chlordiazePOXIDE HCL 25 MG CAPSULE PO PRN (16:58)
[2023-08-01] MEDS ORDERED: chlordiazePOXIDE HCL 25 MG CAPSULE PO SCH (17:00)
[2023-08-01] MEDS: chlordiazePOXIDE HCL 25 MG CAPSULE PO SCH ×2 (18:11→22:20)
[2023-08-01] MEDS ORDERED: MELATONIN 5 MG TABLETS PO SCH (22:00)
[2023-08-01] MEDS: THIAMINE HCL 100 MG TABLET (FP) PO SCH (22:20)
[2023-08-02] MEDS: chlordiazePOXIDE HCL 25 MG CAPSULE PO SCH ×4 (06:19→22:48)
[2023-08-02] MEDS: NICOTINE 14 MG/24 HOURS TOPICAL PATCH TD SCH (10:36)
[2023-08-02] MEDS: PRENATAL VITAMINS W/ FOLIC ACID TABLET (FP) PO SCH ×2 (10:36→11:28)
[2023-08-02] MEDS: BENZONATATE 200 MG CAPSULE PO PRN (11:27)
[2023-08-02 12:21] LABS: CHLORIDE 106 mmol/L (98-107); SODIUM 139 mmol/L (136-145)
[2023-08-02 12:34] LABS: HEMATOCRIT 41.3 % (35.4-49); HEMOGLOBIN 13.4 GM/dL (11.7-16.9); MCH 29.5 pg (25.7-33.7); MCHC 32.5 g/dl (32.0-35.9); MEAN CELL VOLUME 90.8 fl (80-96); MEAN PLT VOLUME 8.5 fl (7.5-11.1); PLATELET COUNT 301 10^3/uL (134-434); RBC 4.55 M/mm3 (4.00-5.60); RDW 16.8 % (11.9-15.9); WHITE BLOOD COUNT 4.5 K/mm3 (4.0-10.0)
[2023-08-02 13:24] LABS: HIV INTERPRETATION NEGATIVE (NEGATIVE)
[2023-08-02] MEDS ORDERED: busPIRone HCL 10 MG TABLET (FP) PO SCH (13:30)
[2023-08-02] MEDS ORDERED: buPROPion HCL 75 MG TABLET PO SCH (13:30)
[2023-08-02] MEDS: GABAPENTIN 300 MG CAPSULE PO SCH ×2 (14:25→22:48)
[2023-08-02] MEDS: THIAMINE HCL 100 MG TABLET (FP) PO SCH (22:48)
[2023-08-02] MEDS: guaiFENesin 600 MG TABLET.ER (FP) PO PRN (22:51)
[2023-08-02] MEDS: QUEtiapine FUMARATE 400 MG TABLET PO SCH (22:51)
[2023-08-02 23:39] LABS: CALCIUM 8.9 mg/dL (8.5-10.1)
[2023-08-02 23:40] LABS: ALBUMIN 3.4 g/dl (3.4-5.0); ANION GAP 9 mmol/L (4-13); BLOOD UREA NITROGEN 8.9 mg/dL (7-18); CO2 24 mmol/L (21-32); CREATININE 0.6 mg/dL (0.55-1.3); GLUCOSE,RANDOM 116 mg/dL (74-106); SGOT/AST 35 U/L (15-37); SGPT/ALT 39 U/L (13-61)
[2023-08-02 23:42] LABS: BILIRUBIN,TOTAL 0.8 mg/dL (0.2-1); TOT PROT 6.9 g/dl (6.4-8.2)
[2023-08-02 23:43] LABS: ALK PHOS 64 U/L (45-117)
[2023-08-03] MEDS: GABAPENTIN 300 MG CAPSULE PO SCH ×3 (05:40→22:22)
[2023-08-03] MEDS: chlordiazePOXIDE HCL 25 MG CAPSULE PO SCH ×4 (05:40→22:22)
[2023-08-03] MEDS: PRENATAL VITAMINS W/ FOLIC ACID TABLET (FP) PO SCH (10:38)
[2023-08-03] MEDS: NICOTINE 14 MG/24 HOURS TOPICAL PATCH TD SCH (10:40)
[2023-08-03] MEDS: BENZONATATE 200 MG CAPSULE PO PRN (16:47)
[2023-08-03] MEDS: QUEtiapine FUMARATE 400 MG TABLET PO SCH (22:22)
[2023-08-03] MEDS: THIAMINE HCL 100 MG TABLET (FP) PO SCH (22:22)
[2023-08-03] MEDS: guaiFENesin 600 MG TABLET.ER (FP) PO PRN (22:22)
[2023-08-04] MEDS ORDERED: chlordiazePOXIDE HCL 10 MG CAPSULE PO PRN
[2023-08-04] MEDS: chlordiazePOXIDE HCL 10 MG CAPSULE PO SCH ×4 (05:56→22:42)
[2023-08-04] MEDS: GABAPENTIN 300 MG CAPSULE PO SCH ×3 (05:57→22:41)
[2023-08-04] MEDS: PRENATAL VITAMINS W/ FOLIC ACID TABLET (FP) PO SCH (10:44)
[2023-08-04] MEDS: NICOTINE 14 MG/24 HOURS TOPICAL PATCH TD SCH (10:47)
[2023-08-04] MEDS ORDERED: guaiFENesin 600 MG TABLET.ER (FP) PO ONE (14:29)
[2023-08-04] MEDS: THIAMINE HCL 100 MG TABLET (FP) PO SCH (22:41)
[2023-08-04] MEDS: QUEtiapine FUMARATE 400 MG TABLET PO SCH (22:42)
[2023-08-04] MEDS: guaiFENesin 600 MG TABLET.ER (FP) PO SCH (22:48)
[2023-08-05] MEDS: chlordiazePOXIDE HCL 10 MG CAPSULE PO SCH ×2 (05:52→17:32)
[2023-08-05] MEDS: GABAPENTIN 300 MG CAPSULE PO SCH ×3 (05:52→22:27)
[2023-08-05] MEDS: guaiFENesin 600 MG TABLET.ER (FP) PO SCH ×2 (10:07→22:27)
[2023-08-05] MEDS: NICOTINE 14 MG/24 HOURS TOPICAL PATCH TD SCH (10:07)
[2023-08-05] MEDS: PRENATAL VITAMINS W/ FOLIC ACID TABLET (FP) PO SCH (10:07)
[2023-08-05] MEDS: QUEtiapine FUMARATE 400 MG TABLET PO SCH (22:27)
[2023-08-05] MEDS: THIAMINE HCL 100 MG TABLET (FP) PO SCH (22:27)
[2023-08-06] MEDS ORDERED: chlordiazePOXIDE HCL 10 MG CAPSULE PO ONE (05:00)
[2023-08-06] MEDS: GABAPENTIN 300 MG CAPSULE PO SCH (06:17)
[2023-08-06 06:33] VITALS: BP 112/69; PULSE 74; RESP 18; TEMP 97.1
== END 2023-08-06 10:47 | disposition home or self-care (01) | DRG 774 ==
LOC: YASAS 12:43 → Y3N 17:17
PROVIDERS: ADMIT Allergy & Immunology; ATTEND Surgery
PROC: HZ2ZZZZ Detoxification Services for Substance Abuse Treatment (ICD-10-PCS; principal; 2023-08-01)
DX: F10.230 Alcohol dependence with withdrawal, uncomplicated (principal); F14.20 Cocaine dependence, uncomplicated; F12.20 Cannabis dependence, uncomplicated; F17.210 Nicotine dependence, cigarettes, uncomplicated; F31.9 Bipolar disorder, unspecified; F43.10 Post-traumatic stress disorder, unspecified; Z59.00 Homelessness unspecified
CPT/HCPCS: 36415; 80053; 80307; 85027; 86780; 87389; 87635

== ENCOUNTER 2024-01-04 16:19 | Inpatient (IN) | payer OTHER ==
[2024-01-04 18:17] VITALS: BMI 26.1
[2024-01-04] MEDS ORDERED: NALOXONE HCL 0.4 MG/ML VIAL IM PRN (20:55)
[2024-01-04] MEDS ORDERED: MAGNESIUM HYDROX 2400MG/30ML ORAL SUSPENSION 30 ML CUP PO PRN (20:55)
[2024-01-04] MEDS ORDERED: NALOXONE (NARCAN) HCL 4 MG/0.1 ML SPRAY NS PRN (20:55)
[2024-01-04] MEDS ORDERED: IBUPROFEN 400 MG TABLET (FP) PO PRN (20:55)
[2024-01-04] MEDS ORDERED: guaiFENesin 600 MG TABLET.ER (FP) PO PRN (20:55)
[2024-01-04] MEDS ORDERED: ONDANSETRON *ODT* 4 MG TABLET SL PRN (20:55)
[2024-01-04] MEDS ORDERED: BENZONATATE 200 MG CAPSULE PO PRN (20:55)
[2024-01-04] MEDS ORDERED: BISMUTH SUBSALICYLATE 524 MG/30 ML PO PRN (20:55)
[2024-01-04] MEDS ORDERED: METHOCARBAMOL 500 MG TABLET PO PRN (20:55)
[2024-01-04] MEDS ORDERED: NICOTINE POLACRILEX 2 MG GUM BUC PRN (20:55)
[2024-01-04] MEDS ORDERED: ACETAMINOPHEN 325 MG TABLET (FP) PO PRN (20:55)
[2024-01-04] MEDS ORDERED: MAG HYDROX/AL HYDROX/SIMETH 30 ML UNIT-DOSE CUP PO PRN (20:55)
[2024-01-04] MEDS ORDERED: BENZOCAINE/MENTHOL (CHLORASEPTIC ) LOZENGE MM PRN (20:55)
[2024-01-04] MEDS ORDERED: POLYETHYLENE GLYCOL (HEALTHYLAX) 3350 17 GM PACKET PO PRN (20:55)
[2024-01-04] MEDS ORDERED: DICYCLOMINE HCL 10 MG CAPSULE PO PRN (20:55)
[2024-01-04] MEDS ORDERED: LOPERAMIDE HCL 2 MG CAPSULE PO PRN (20:55)
[2024-01-04] MEDS: MELATONIN 5 MG TABLETS PO SCH (23:31)
[2024-01-04] MEDS: chlordiazePOXIDE HCL 25 MG CAPSULE PO SCH (23:31)
[2024-01-04] MEDS: THIAMINE 100 MG TABLET PO SCH (23:31)
[2024-01-05] MEDS ORDERED: buPROPion HCL 75 MG TABLET PO ONE (09:49)
[2024-01-05] MEDS: NICOTINE 14 MG/24 HOURS TOPICAL PATCH TD SCH (10:03)
[2024-01-05] MEDS: PRENATAL VITAMINS W/ FOLIC ACID TABLET (FP) PO SCH (10:03)
[2024-01-05] MEDS: levETIRAcetam 500 MG TABLET (FP) PO SCH (10:03)
[2024-01-05] MEDS: TOLNAFTATE 1% CREAM 15 GM TUBE TP SCH (10:03)
[2024-01-05 10:31] LABS: CHLORIDE 105 mmol/L (98-107); POTASSIUM 3.8 mmol/L (3.5-5.1); SODIUM 137 mmol/L (136-145)
[2024-01-05 10:34] LABS: HEMATOCRIT 40.5 % (35.4-49); HEMOGLOBIN 13.3 GM/dL (11.7-16.9); MCH 29.6 pg (25.7-33.7); MCHC 32.8 g/dl (32.0-35.9); MEAN CELL VOLUME 90.2 fl (80-96); MEAN PLT VOLUME 8.7 fl (7.5-11.1); PLATELET COUNT 288 10^3/uL (134-434); RBC 4.49 M/mm3 (4.00-5.60); RDW 13.7 % (11.9-15.9); WHITE BLOOD COUNT 4.1 K/mm3 (4.0-10.0)
[2024-01-05 10:35] LABS: ALBUMIN 3.4 g/dl (3.4-5.0); ANION GAP 4 mmol/L (4-13); BLOOD UREA NITROGEN 8.8 mg/dL (7-18); CALCIUM 8.7 mg/dL (8.5-10.1); CO2 28 mmol/L (21-32); GLUCOSE,RANDOM 105 mg/dL (74-106)
[2024-01-05 10:38] LABS: CREATININE 0.7 mg/dL (0.55-1.3); SGOT/AST 41 U/L (15-37); SGPT/ALT 41 U/L (13-61)
[2024-01-05 10:40] LABS: BILIRUBIN,TOTAL 1.2 mg/dL (0.2-1); TOT PROT 6.6 g/dl (6.4-8.2)
[2024-01-05 10:41] LABS: ALK PHOS 66 U/L (45-117)
[2024-01-05] MEDS: buPROPion HCL 75 MG TABLET PO SCH (10:45)
[2024-01-05] MEDS: busPIRone HCL 10 MG TABLET (FP) PO SCH (13:09)
[2024-01-05] MEDS: GABAPENTIN 300 MG CAPSULE PO SCH (13:09)
[2024-01-05] MEDS: chlordiazePOXIDE HCL 25 MG CAPSULE PO PRN (13:27)
[2024-01-05] MEDS: FLUTICASONE PROP 0.05% 16 GM NASAL SPRAY NS SCH (13:32)
[2024-01-05] MEDS: QUEtiapine FUMARATE 400 MG TABLET PO SCH (21:35)
[2024-01-05] MEDS: HYDROCORTISONE 0.5% TOPICAL CREAM 30 GM TUBE TP PRN (22:34)
[2024-01-06] MEDS: chlordiazePOXIDE HCL 25 MG CAPSULE PO SCH (06:00)
[2024-01-06] MEDS: IBUPROFEN 600 MG TABLET (FP) PO PRN (23:10)
[2024-01-07] MEDS ORDERED: chlordiazePOXIDE HCL 10 MG CAPSULE PO PRN
[2024-01-07] MEDS: chlordiazePOXIDE HCL 10 MG CAPSULE PO SCH (05:29)
[2024-01-08] MEDS: chlordiazePOXIDE HCL 10 MG CAPSULE PO SCH (05:55)
[2024-01-08] MEDS: hydrOXYzine PAMOATE 25 MG CAPSULE (FP) PO PRN (10:16)
[2024-01-09] MEDS: chlordiazePOXIDE HCL 10 MG CAPSULE PO ONE (05:44)
[2024-01-09 12:24] VITALS: BP 133/77; PULSE 86; RESP 16; TEMP 98.6
== END 2024-01-09 13:37 | disposition other institution (70) | DRG 774 ==
LOC: YASAS 16:19 → Y3N 20:53
PROVIDERS: ADMIT Allergy & Immunology; ATTEND Surgery
PROC: HZ2ZZZZ Detoxification Services for Substance Abuse Treatment (ICD-10-PCS; principal; 2024-01-04)
DX: F10.230 Alcohol dependence with withdrawal, uncomplicated (principal); F14.20 Cocaine dependence, uncomplicated; F17.210 Nicotine dependence, cigarettes, uncomplicated; F19.282 Other psychoactive substance dependence with psychoactive substance-induced sleep disorder; F19.24 Other psychoactive substance dependence with psychoactive substance-induced mood disorder; F31.9 Bipolar disorder, unspecified; F41.9 Anxiety disorder, unspecified; F43.10 Post-traumatic stress disorder, unspecified; L30.9 Dermatitis, unspecified
CPT/HCPCS: 36415; 80053; 80305; 80307; 85027; 86780; 87811